=== PATIENT | female | born 1965 | race Caucasian/White ===

== ENCOUNTER → 2020-09-28 09:32 | Outpatient (BNVA) | payer OTHER, SELFPAY | PROVIDERS: Visit Provider Advanced Practice Midwife ==

== ENCOUNTER 2020-10-03 08:13 | Outpatient (REF) | payer OTHER, SELFPAY ==
--- NOTE | ~2020-10-03 | US_ITS ---
EXAMINATION: US PELVIS AND TRANSVAGINAL CLINICAL INFORMATION: Polyp of cervix. History of fibroids. Postmenopausal bleeding. COMPARISON: None TECHNIQUE: Transabdominal and transvaginal imaging of pelvis is performed. FINDINGS: The uterus is anteverted measuring 9.2 cm in length, 4.1 cm in AP, and 8.0 cm in transverse dimension. Endometrial thickness is 0.95 cm. The myometrium is heterogeneous. There are several hypoechoic lesions consistent with fibroid. They measure, as follows: 1. Lesion at the anterior left junction of fundus and body of uterus measuring 4.1 x 3.3 x 3.7 cm. Previously it measured 4.9 x 4.1 x 3.6 cm. 2. Lesion in the posterior lower body of uterus measuring 4.5 x 3.2 x 3.6 cm. Previously it measured 4.8 x 4.0 x 4.7 cm. 3. Lesion in the right lower uterus measuring 2.1 x 2.5 x 2.4 cm. Previously it measured 1.8 x 1.2 x 1.8 cm. 4. Lesion in the anterior mid body of the uterus measures 1.1 x 0.9 x 1.3 cm. Previously it measured 1.5 x 1.5 x 1.7 cm. There are small nabothian cysts seen in the cervix. Small feeder vessels seen in the cervix, question polyp or cervical fibroid. However, this is not well visualized The right ovary measures 2.4 x 1.3 x 1.5 cm and volume 2.4 mL on transabdominal ultrasound. Previously it measured 2.5 x 2.0 x 2.6 cm and volume 6.6 mL. The right ovary appears unremarkable. The left ovary measures 2.8 x 1.7 x 2.1 cm and volume 5.2 mL on transabdominal ultrasound. Previously it measured 3.1 x 2.1 x 4.0 cm and volume 13.5 mL. There is an anechoic cyst measuring 1.4 x 1.4 x 1.5 cm. There is no free fluid in cul-de-sac. US/US pelvic and transvaginal IMPRESSION: Multiple uterine fibroids are stable. The myometrium is heterogeneous. There are small nabothian cysts seen in the cervix. There is increased vascularity in the cervix and feeder vessels, question polyps versus cervical fibroids.
== END 2020-10-03 08:14 | disposition home or self-care (01) ==
LOC: HO.HMGCX 08:13
PROVIDERS: Visit Provider Advanced Practice Midwife
DX: N84.1 Polyp of cervix uteri (principal); N95.0 Postmenopausal bleeding
CPT/HCPCS: 76830; 76856

== ENCOUNTER 2020-10-14 08:35 | Outpatient (REF) | payer OTHER, SELFPAY ==
[2020-10-19 00:52] LABS: HPV mRNA E6/E7 rflx Not Detected (Not Detected)
== END 2020-10-14 08:36 | disposition home or self-care (01) ==
LOC: HO.LAB 08:35
PROVIDERS: Visit Provider Obstetrics & Gynecology
DX: N84.1 Polyp of cervix uteri (principal); N95.0 Postmenopausal bleeding; Z87.891 Personal history of nicotine dependence; Z12.4 Encounter for screening for malignant neoplasm of cervix
CPT/HCPCS: 57500; 58100; 87624; 88141; 88142; 88305; 99212

== ENCOUNTER → 2020-10-21 12:36 | Outpatient (BNVA) | payer OTHER, SELFPAY | PROVIDERS: Visit Provider Obstetrics & Gynecology ==

== ENCOUNTER → 2021-09-29 09:56 | Outpatient (BNVA) | payer OTHER, SELFPAY | PROVIDERS: Visit Provider Advanced Practice Midwife ==